=== PATIENT | female | born 1960 | race Caucasian/White ===

== ENCOUNTER 2016-08-09 19:34 | Emergency (ER) | payer OTHER ==
--- NOTE | 2016-08-09 21:14 | DIAGNOSTIC IMAGING REPORT ---
PROCEDURE: CT HEAD WITHOUT CONTRAST INDICATION: Stroke. Visual disturbance. Headache. TECHNIQUE: Noncontrast axial images with sagittal and coronal reformations. COMPARISON: None. FINDINGS: Brain and ventricles are normal. No evidence of an acute process or hemorrhage. Sinuses and mastoids are normal. IMPRESSION: 1. Negative head CT. 2. Findings discussed with Dr. Kamilah Russ at [address] scans at this facility use dose modulation, iterative reconstruction, and/or weight-based dosing when appropriate to reduce radiation dose to as low as reasonably achievable.
--- NOTE | 2016-08-09 21:15 | ED NURSING NOTES ---
Clinical Report - Nurses [facility] [address] [place] [address] 08/09/2016 19:36 [id number] Triage time 19:38 Aug 09 2016. Acuity: LEVEL 2. Chief Complaint: (partial loss of vision). SEPSIS SCREEN: Sepsis Screen. Negative (no infection suspected/documented). LASHELL COMA SCORE: Lashell Coma Scale: 15- eyes open spontaneously (4); best verbal response- oriented x 4 (5); best motor response- obeys commands (6). NIH STROKE SCALE: NIH Stroke Scale: score 1. Level of Consciousness: alert (0). LOC Questions: both (0). LOC Commands: both (0). Best gaze: normal (0). Visual field loss: partial hemianopsia (1). Facial palsy: normal (0). Motor arm: no drift right arm (0). Motor leg: no drift right leg (0). Limb ataxia: none (0). Sensory loss: none (0). Aphasia: none (0). Dysarthria: normal (0). Extinction and inattention: none (0). --19:51 Yola Ahuja R.N. 19:46 08/09/16. BP: 146/90. HR: 95. RR: 18. O2 saturation: 97%. Temp: 98.1 F. Pain level now 5/10. --19:51 Yola Ahuja R.N. 19:51 08/09/16. --19:51 Yola Ahuja R.N. Weight: 68 kg. Height/Length: 61 inches. BMI: 28.3. --19:38 Yola Ahuja R.N. Medications Lisinopril Oral. --19:47 Yola Ahuja R.N. Capsule gell pill for thyroid. --19:50 Yola Ahuja R.N. Medication/allergy information source: the patient. --19:51 Yola Ahuja R.N. Allergies Morphine and Related. --19:47 Yola Ahuja R.N. History Arrived by private vehicle. Historian: patient. Accompanied by family. Patient was last known well (1899). Treatment EXPLORATION ENGINEER: None. PAST MEDICAL HX: The patient has had a hysterectomy. SOCIAL HX: Smoker- current status unknown (quit 20 years ago). No alcohol use or drug use. No infectious disease exposure. ABUSE ASSESSMENT: No report of abuse. SELF HARM ASSESSMENT: A self harm assessment was performed. The patient answered "no" to the question "Have you recently felt down, depressed, or hopeless?", "Have you noticed less interest or pleasure in doing things?", "Do you have thoughts of harming or killing yourself?", "Are you here because you tried to hurt yourself?", "Have you ever tried to hurt yourself before today?", "Have you recently had thoughts about harming or killing others?" and "Do you have any dangerous items in your possession?". NUTRITIONAL RISK ASSESSMENT: The nutritional risk assessment revealed no deficiencies. FUNCTIONAL ASSESSMENT: Functional assessment: no impairments noted. LEARNING NEEDS ASSESSMENT: The learning needs assessment revealed no barriers. --19:51 Yola Ahuja R.N. The patient has had a headache. No alteration in mental status, recent fall, impaired speech or trouble walking or swallowing. No dizziness, weakness or numbness. --19:51 Yola Ahuja R.N. PROBLEMS: Hypothyroidism. Hypertension. --19:47 Yola Ahuja R.N. ADDITIONAL SURGERIES: Cholecystectomy. Hysterectomy. --19:47 Yola Ahuja R.N. Interventions ID and allergy band on patient. STROKE protocol initiated. --19:51 Yola Ahuja R.N. PHYSICAL ASSESSMENT 19:53 08/09/16. Ambulatory to room. GENERAL / NEURO / PSYCH: Awake. Alert. Appears anxious. Speech normal. No motor deficit. No sensory deficit. HEENT: Pupils equal, round and reactive to light. EOM intact. Bilateral visual field deficit (hazy cloud with "prisms" in both right peripheral walker). RESPIRATORY: Breath sounds within normal limits. Respirations not labored. CVS: Normal sinus rhythm noted. Capillary refill less than 2 seconds. SKIN: Skin is intact, warm and dry. --19:53 Yola Ahuja R.N. NURSING PROGRESS NOTES 19:38 08/09/16. Patient transported to CT by stretcher with tech. --19:38 Yola Ahuja R.N. 19:50 08/09/16. The initial plan of care for this patient includes an assessment with efforts to address the presence of pain; impairment of the neurological system. This plan of care was discussed with the patient. Patient gowned. Reassurance given to the patient and patient's family. Patient returned from CT by stretcher. (19:47 Aug 09 2016). Patient identifiers checked. Call light placed in reach. Side rails up x 2. Bed placed in lowest position. Brakes of bed on. --19:52 Yola Ahuja R.N. 20:00 08/09/2016 Site #1 started via IV in the left hand with an 20g angiocath, with aseptic technique and good blood return; one attempt. Blood drawn: rainbow set. Labeled in the presence of the patient and sent to the lab. Saline lock flushed with 10 mL saline. --20:02 Yola Ahuja R.N. 20:03 08/09/16. BP: 147/82. HR: 97. RR: 18. O2 saturation: 95%. Pain level now 2/10. --20:03 Yola Ahuja R.N. 20:03 08/09/16. Cardiac rhythm: normal sinus rhythm. alarm security or surveillance monitor and pulse oximeter placed on patient; alarm security or surveillance monitor- Lead II; monitor alarms on. --20:03 Yola Ahuja R.N. 20:15 08/09/2016 Started bag #1 1000 mL IV Fluids IV NS (Saline); at 1000 mL/hr over 1 hour(s) via site #1. Allergies verified and confirmed 5 rights. IV patency established. IV site checked: no pain, redness, or swelling. IV flushed thoroughly pre- and post-medication administration. --20:19 Yola Ahuja R.N. 20:25 08/09/2016 Aspirin PO Tablets 325 mg given. Allergies verified and confirmed 5 rights. --20:30 Yola Ahuja R.N. 20:25 08/09/2016 Toradol IVP 30 mg given over 1 minute(s) via site #1. Allergies verified and confirmed 5 rights. IV patency established. IV site checked: no pain, redness, or swelling. IV flushed thoroughly pre- and post-medication administration. IVP given by RN. --20:31 Yola Ahuja R.N. 20:28 08/09/2016 Benadryl (DiphenhydrAMINE HCl) IVP 12.5 mg given over 1 minute(s) via site #1. Allergies verified, confirmed 5 rights and sedative warning given to the patient and patient's family. IV patency established. IV site checked: no pain, redness, or swelling. IV flushed thoroughly pre- and post-medication administration. IVP given by RN. --20:30 Yola Ahuja R.N. 20:29 08/09/2016 PHENERGAN (Promethazine HCl) IVP 25 mg given over 5 minute(s) via site #1. Allergies verified and confirmed 5 rights. IV patency established. IV site checked: no pain, redness, or swelling. IV flushed thoroughly pre- and post-medication administration. IVP given by RN. --20:30 Yola Ahuja R.N. 20:33 08/09/16. Reassessment after medication administered. HEENT: The patient reports visual field deficit (resolving). --20:33 Yola Ahuja R.N. EKG time: (1953 PM). EKG was ordered, performed by a tech and shown to the ED physician. --20:54 Morenita Lynch 21:07 08/09/16. Reassessment after medication administered. ( Pt states feels like her arms and legs are twitching. I explained that it could be a side effect of the medications that she has been given and that if the symptoms get worse to inform staff.). --21:07 Yola Ahuja R.N. 21:15 08/09/2016 Benadryl (DiphenhydrAMINE HCl) IVP 12.5 mg given over 1 minute(s) via site #1. Allergies verified, confirmed 5 rights and sedative warning given to the patient. IV patency established. IV site checked: no pain, redness, or swelling. IV flushed thoroughly pre- and post-medication administration. IVP given by RN. --21:20 Yola Ahuja R.N. 21:15 08/09/16. ( Dr Russ at bedside reviewing findings with patient and family. Additional benadryl given for agitation following benadryl.). --21:20 Yola Ahuja R.N. DISPOSITION / DISCHARGE 21:20 08/09/2016 Site #1 removed upon discharge. Catheter intact. Pressure dressing applied. --21:21 Yola Ahuja R.N. 21:08/09/16. Cardiac rhythm: normal sinus rhythm. The goals identified in the patient's plan of care were met. --21:21 Yola Ahuja R.N. 21:08/09/16. BP: 141/77. HR: 90. RR: 24. O2 saturation: 97%. Temp: 98.5 F. Pain level now 0/10. --21:21 Yola Ahuja R.N. 21:08/09/16. Condition at departure: improved. No learning barriers present. Discharge instructions provided and reviewed with the patient and spouse. Reviewed referral to a primary care physician for followup. Summary of care provided to patient. Patient and spouse verbalized understanding. Written instructions provided in Iraqi. The patient was discharged home and accompanied by spouse. She left the Emergency Department ambulatory and via private vehicle. Spouse driving. --21:22 Yola Ahuja R.N. Departure time: 21:Aug 09 2016. --21:23 Yola Ahuja R.N. Locked/Released at 08/09/2016 21:24 by Yola Ahuja R.N.
--- NOTE | 2016-08-09 21:15 | ED CLINICAL REPORT ---
Clinical Report - Physicians/Mid Levels [facility] [address] [place] [address] 08/09/2016 19:36 Patient: ARIANA ALDRIDGE Time Seen: 19:39. Arrived- By private vehicle. Historian- patient. HISTORY OF PRESENT ILLNESS Chief Complaint: VISUAL DISTURBANCE. This started about 40 minutes ago and is still present but is improving. No weakness, numbness, tingling or impaired speech or swallowing. No recent fall. She has had visual disturbance of the left eye (patient states that she has a moving area in her vision that appears as though she is looking through a kaleidoscope. Patient states that she can see around the area). No difficulty walking. At its maximum deficit described as moderate. When seen in the E.D.,deficit described as moderate. No dizziness, altered mental status, seizure or blackouts. Usually is alert and oriented X3 and has normal mobility. Similar symptoms previously: None. ( Patient states she has a history of headaches but has never had visual changes with them. Patient states she has had a headache all day today on the left side which is the same side on which she has noticed the visual changes. Patient states she did have some pain in her jehovah's witness and behind her left eye as well as in her left forehead. She has no history of glaucoma, migraines or CVA. She states that there is a positive family history for CVA and VA in her grandmother. However her grandmother was in her upper 80s when she suffered CVA and VA.). Recent medical care: Not recently seen/assessed. REVIEW OF SYSTEMS No fever, head injury, chest pain, difficulty breathing or cough. No sputum production, sore throat, abdominal pain, nausea or diarrhea. No black stools, difficulty with urination, skin rash, enlarged lymph nodes or joint pain. No vomiting, bloody stools or back pain. The patient has had a headache. All systems otherwise negative, except as recorded above. PAST HISTORY Problems: Hypothyroidism. Hypertension. Additional Surgeries: Cholecystectomy. Hysterectomy. Medications: Capsule gell pill for thyroid. Lisinopril Oral. Allergies: Morphine and Related. SOCIAL HISTORY Smoker- current status unknown. No alcohol use or drug use. ADDITIONAL NOTES The nursing notes have been reviewed. PHYSICAL EXAM Vital Signs: 08/09/2016 19:46 BP: 146/90. HR: 95. RR: 18. O2 saturation: 97%. Temp: 98.1 F. Have been reviewed. Appearance: Alert. No acute distress. Head: Head atraumatic. Eyes: Pupils equal, round and reactive to light. ENT: Normal ENT inspection. Airway intact. (Patient has a normal fundoscopic exam. She has no temporal artery tenderness on the left. Intraocular pressure measurements average 13 and 16 on sets of 10 measurements each.). Neck: Normal inspection. CVS: Normal heart rate and rhythm. Heart sounds normal. Pulses normal. Respiratory: No respiratory distress. Breath sounds normal. Abdomen: Soft and nontender. Back: Normal inspection. No CVA tenderness. Skin: Skin warm and dry. Normal skin color. No rash. Normal skin turgor. Extremities: Extremities exhibit normal ROM. No lower extremity edema. Neuro: Alert. Oriented X 3. Mood/affect normal. Speech normal. Cranial nerves normal (as tested). No cerebellar findings. No motor deficit. No sensory deficit. LABS, X-RAYS, AND EKG EKG: EKG time: (2040). Normal sinus rhythm. Rate: 97. Left atrial enlargement. Normal PASQUALE. Decreased QRS voltage. Normal axis. Normal QT and QTc. Non-specific ST segment / T wave abnormalities. Prior EKG unavailable. The study has been interpreted contemporaneously by me. The study has been independently viewed by me. The EKG appears to be a good tracing. I agree with and confirm the computer reading of the EKG. Rhythm Strip #1: Time: (1941). Rate= 94. Normal sinus rhythm. Regular rhythm. Narrow QRS complexes. No ectopy. Conduction normal. Normal ST segments and T waves. The study was interpreted by me. CT Head: Normal study. No acute changes. No bony abnormalities, no hemorrhage, no intracranial mass, no midline shift and no hydrocephalus. No atrophy. Head CT performed without contrast. The study was independently viewed by me, interpreted by the radiologist and contemporaneously by me and discussed with the radiologist. Prior studies were not available for comparison. Laboratory Tests: CBC w Diff: (JOAN: 08/09/2016 20:00) ( MsgRcvd 08/09/2016 20:14) Final results Test Result Flag Units (Reference) WHITE BLOOD COUNT 9.8 K/uL (4.5-11.5) RED BLOOD COUNT 4.46 M/uL (4.00-5.20) HEMOGLOBIN 13.7 gm/dL (12.0-16.0) HEMATOCRIT 40.6 % (36.0-46.0) MEAN CELL VOLUME 91 fL (80-100) MEAN CORPUSCULAR HGB 31 pg (26-34) MEAN CORPUSCULAR HGB CONC 34 g/dL (31-37) RED CELL DISTRIBUTION WIDTH 12.1 % (11.6-14.8) PLATELET COUNT 277 K/uL (150-400) NEUTROPHIL % 69.8 % (50-75) LYMPH % 21.6 L % (25-40) MONO % 6.4 % (3-14) EOSINOPHIL % 1.9 % (0-4) BASOPHIL % 0.3 % (0-2) PT with INR: (JOAN: 08/09/2016 20:00) ( [facility] 08/09/2016 20:23) Final results Test Result Flag Units (Reference) INR 0.9 (0.8-1.2) Low Intensity Therapy: INR 1.5-2.0 PT range 18.5-23.1Mod.Intensity Therapy: INR 2.0-3.0 PT range 23.1-31.5High Intensity Therapy: INR 2.5-3.5 PT range 27.4-35.5High Intensity Therapy 2: INR 3.0-4.0 PT range 31.5-39.3 CHEM 13 PANEL: (JOAN: 08/09/2016 20:00) ( [facility] 08/09/2016 20:31) Final results Test Result Flag Units (Reference) GLUCOSE 122 H mg/dL (70-110) BUN 13 mg/dL (7-18) CREATININE 0.9 mg/dL (0.6-1.3) Estimated GFR >60 mL/min Estimated GFR- >60 mL/min Note: Persistent reduction over 3 months in eGFR<60 mL/min/1.73 m2 defines CKD. Patients with eGFR values>=60 mL/min/1.73 m2 may also have CKD if evidence ofpersistent proteinuria. Additional information may be foundat www.kidney.org. SODIUM 142 mmol/L (136-145) POTASSIUM 3.6 mmol/L (3.5-5.1) CHLORIDE 105 mmol/L (98-107) CARBON DIOXIDE 27 mmol/L (21-32) CALCIUM 9.3 mg/dL (8.5-10.1) TOTAL PROTEIN 7.4 g/dL (6.4-8.2) ALBUMIN 3.9 g/dL (3.3-5.0) BILIRUBIN, TOTAL 0.2 mg/dL (0.0-1.0) ALKALINE PHOSPHATASE 103 U/L (46-116) AST (SGOT) 17 U/L (15-37) ALT (SGPT) 24 U/L (12-78) CPK 66 U/L (24-260) MAGNESIUM 1.8 mg/dL (1.8-2.4) TROPONIN I <0.05 L ng/mL (0.00-1.5) TROPONIN REFERENCE RANGE:<0.1 NEGATIVE0.1-1.5 INDETERMINANT>1.5 POSITIVE . Pulse Oximetry: 08/09/2016 19:46 O2 saturation: 97%. (FIO2 - room air). Interpretation: normal. PROGRESS AND PROCEDURES Course of Care: patient was brought to the emergency department by her and was worked up as a code stroke initially. She was immediately sent to the CT scanner and radiologist did call about 5 minutes later stating that patient's CT scan was unremarkable. I did work the patient up for other causes of her symptoms. She had no evidence of temporal arteritis or glaucoma. Patient had no other neurologic symptoms and I suspected ocular migraine. I did speak at length with the patient and her regarding the patient's symptoms and potential causes. Patient was given a liter of IV fluid as well as IV Toradol and Phenergan after which she did feel better. No emergent condition was identified. Patient and spouse counseled in person regarding the patient's stable condition, test results, diagnosis and need for follow-up. Old medical records reviewed. Disposition: Discharged. Condition: stable and improved. CLINICAL IMPRESSION Sudden, transient vision loss in the left eye. Probable acute migraine headache (with ocular phenomena). INSTRUCTIONS (Your CT scan and labs look good, as does your EKG. Your eye exam shows an intact retina with good blood flow. Your eye pressures are normal, indicating that acute angle closure glaucoma is not the cause of your headache and visual changes. No emergent cause of your symptoms has been found today. Your symptoms most likely represent an ocular migraine. If you have recurrent episodes, please follow up with your doctor to discuss further management.). Warnings: GENERAL WARNINGS: Return or contact your physician immediately if your condition worsens or changes unexpectedly, if not improving as expected, or if other problems arise. Your Current Medications: CONTINUE TAKING THE FOLLOWING MEDICATIONS: Capsule gell pill for thyroid*. Lisinopril Oral. Follow-up: Follow up with your doctor as needed. Understanding of the discharge instructions verbalized by patient and family. (Electronically signed by Kamilah Russ MD 08/09/2016 22:11) Addenda for ARIANA ALDRIDGE VisitID: [id number] Date: 08/09/2016 08/09/2016 21:24 Started bag #1 1000 mL IV Fluids IV NS (Saline); at 1000 mL/hr over 1 hour(s) via site #1. Allergies verified and confirmed 5 rights. IV patency established. IV site checked: no pain, redness, or swelling. IV flushed thoroughly pre- and post-medication administration. IV Fluids IV NS Discontinued: completed upon arrival. Total amount infused: 1000 mL. (Electronically signed by Yola Ahuja R.N. - 08/09/2016 21:24)
--- NOTE | 2016-08-09 21:15 | ED ORDER SUMMARY ---
..... Patient: ARIANA ALDRIDGE OrderSheet [facility] VisitID: [id number] [place] [address] 55y, F Registration Date/Time: 08/09/2016 ORDER SHEET Weight: 68.0 kg Allergies: Morphine and Related GENERAL ORDERS: CT Head wo Cont Urgent (19:38 08/09/2016 EInderbitzen R.N. verbal order read back to Jessica DEVRIES) (Ack 19:40 OHernandez) (19:50 MCampbell) Cancer Genetic Counselor (Continuous) (19:41 08/09/2016 Jessica DEVRIES) (Ack 19:50 SRedmond) (20:05 EInderbitzen R.N.) Cardiac Panel Stat (:41 08/09/2016 Jessica DEVIRES) (Ack 19:50 SRedmond) (20:05 EInderbitzen R.N.) PT with INR Urgent (19:08/09/2016 Jsesica DEVRIES) (Ack 19:50 SRedmond) (20:05 EInderbitzen R.N.) Pulse oximeter (19:41 08/09/2016 Jessica DEVRIES) (Ack 19:50 SRedmond) (20:05 EInderbitzen R.N.) EKG - ER Stat (19:41 08/09/2016 Jessica DEVRIES) (Ack 19:50 SRedmond) (19:56 JRosenzweig) Oxygen (2 L/min) (NC) (19:08/09/2016 Jessica DEVRIES) (Ack 19:50 SRedmond) (20:05 EInderbitzen R.N.) MEDICATION ORDERS: Phenergan IV 25 mg (HIGH ALERT MEDICATION, NOW) (20:10 08/09/2016 Jessica DEVRIES) (Ack 20:20 EInderbitzen R.N.) (20:30 EInderbitzen R.N.) Aspirin PO 325 mg (Do not crush or chew, NOW) (20:11 08/09/2016 Jessica DEVRIES) (Ack 20:20 EInderbitzen R.N.) (20:30 EInderbitzen R.N.) IV FLUIDS: IV NS : initial bolus 1000 mL (1000 mL/hr), then none - (NOW) (19:41 08/09/2016 Jessica DEVRIES) (Ack 20:05 EInderbitzen R.N.) (20:19 EInderbitzen R.N.) IV NS : initial bolus 1000 mL (1000 mL/hr), then none - (NOW) (20:10 08/09/2016 Jessica DEVRIES) (Cancelled: Duplicate Order20:11 Jessica DEVRIES) Toradol IV 30 mg (NOW) (20:10 08/09/2016 Jessica DEVRIES) (Ack 20:20 EInderbitzen R.N.) (20:31 EInderbitzen R.N.) Benadryl IV 12.5 mg (NOW) (20:10 08/09/2016 Jessica DEVRIES) (Ack 20:20 EInderbitzen R.N.) (20:30 EInderbitzen R.N.) Benadryl IV 12.5 mg (NOW) (21:19 08/09/2016 EInderbitzen R.N. verbal order read back to Jessica DEVRIES) (21:20 EInderbitzen R.N.) ORDER SHEET NOTES: [Electronically signed by Yola Ahuja R.N. (21:24 08/09/2016)] [Electronically signed by Kamilah Russ MD (22:11 08/09/2016)] [Electronically locked/signed by Yola Ahuja R.N. (21:24 08/09/2016)]
--- NOTE | 2016-08-09 21:15 | ED ORDER SUMMARY ---
..... Patient: ARIANA ALDRIDGE OrderSheet [facility] VisitID: [id number] [place] [address] 55y, F Registration Date/Time: 08/09/2016 ORDER SHEET Weight: 68.0 kg Allergies: Morphine and Related GENERAL ORDERS: CT Head wo Cont Urgent (19:38 08/09/2016 EInderbitzen R.N. verbal order read back to Jessica DEVRIES) (Ack 19:40 OHernandez) (19:50 MCampbell) Elevator Tender (Continuous) (19:41 08/09/2016 Jessica DEVRIES) (Ack 19:50 SRedmond) (20:05 EInderbitzen R.N.) Cardiac Panel Stat (:41 08/09/2016 Jessica DEVRIES) (Ack 19:50 SRedmond) (20:05 EInderbitzen R.N.) PT with INR Urgent (19:08/09/2016 Jessica DEVRIES) (Ack 19:50 SRedmond) (20:05 EInderbitzen R.N.) Pulse oximeter (19:41 08/09/2016 Jessica DEVRIES) (Ack 19:50 SRedmond) (20:05 EInderbitzen R.N.) EKG - ER Stat (19:41 08/09/2016 Jessica DEVRIES) (Ack 19:50 SRedmond) (19:56 JRosenzweig) Oxygen (2 L/min) (NC) (19:08/09/2016 Jessica DEVRIES) (Ack 19:50 SRedmond) (20:05 EInderbitzen R.N.) MEDICATION ORDERS: Phenergan IV 25 mg (HIGH ALERT MEDICATION, NOW) (20:10 08/09/2016 Jessica DEVRIES) (Ack 20:20 EInderbitzen R.N.) (20:30 EInderbitzen R.N.) Aspirin PO 325 mg (Do not crush or chew, NOW) (20:11 08/09/2016 Jessica DEVRIES) (Ack 20:20 EInderbitzen R.N.) (20:30 EInderbitzen R.N.) IV FLUIDS: IV NS : initial bolus 1000 mL (1000 mL/hr), then none - (NOW) (19:41 08/09/2016 Jessica DEVRIES) (Ack 20:05 EInderbitzen R.N.) (20:19 EInderbitzen R.N.) IV NS : initial bolus 1000 mL (1000 mL/hr), then none - (NOW) (20:10 08/09/2016 Jessica DEVRIES) (Cancelled: Duplicate Order20:11 Jessica DEVRIES) Toradol IV 30 mg (NOW) (20:10 08/09/2016 Jessica DEVRIES) (Ack 20:20 EInderbitzen R.N.) (20:31 EInderbitzen R.N.) Benadryl IV 12.5 mg (NOW) (20:10 08/09/2016 Jessica DEVRIES) (Ack 20:20 EInderbitzen R.N.) (20:30 EInderbitzen R.N.) Benadryl IV 12.5 mg (NOW) (21:19 08/09/2016 EInderbitzen R.N. verbal order read back to Jessica DEVRIES) (21:20 EInderbitzen R.N.) ORDER SHEET NOTES: [Electronically signed by Yola Ahuja R.N. (21:24 08/09/2016)] [Electronically signed by Kamilah Russ MD (22:11 08/09/2016)] [Electronically locked/signed by Yola Ahuja R.N. (21:24 08/09/2016)]
--- NOTE | 2016-08-09 22:11 | ED MAR SUMMARY ---
..... Medication Administration Record [facility] [address] [place] [address] Patient: ARIANA ALDRIDGE Visit ID: [id number] 55y, F Weight: 68.0 kg Height/Length: 61 in BMI: 28.3 ALLERGIES: Morphine and Related Start 20:08/09/2016 Yola Ahuja R.N., Stop 21:08/09/2016 Yola Ahuja R.N. Medication Administered: IV NS (SALINE), Dose: IV Fluids over 1 hour(s), Rate: 1000 mL/hr, Dispensed: 1000 mL bag, Site: #1 left hand. Medication Ordered: IV NS : initial bolus 1000 mL (1000 mL/hr), then none - (NOW). Given 20:08/09/2016 Yola Ahuja R.N. Medication Administered: TORADOL [IVP], Dose: 30 mg IVP over 1 minute(s), Site: #1 left hand. Medication Ordered: Toradol IV 30 mg (NOW). Given :08/09/2016 Yola Ahuja R.N. Medication Administered: ASPIRIN [PO], Dose: 325 mg Tablets PO. Medication Ordered: Aspirin PO 325 mg (Do not crush or chew, NOW). Given :08/09/2016 Yola Ahuja R.N. Medication Administered: BENADRYL [IVP] (DIPHENHYDRAMINE HCL), Dose: 12.5 mg IVP over 1 minute(s), Site: #1 left hand. Medication Ordered: Benadryl IV 12.5 mg (NOW). Given :08/09/2016 Yola Ahuja R.N. Medication Administered: PHENERGAN [IVP] (PROMETHAZINE HCL), Dose: 25 mg IVP over 5 minute(s), Site: #1 left hand. Medication Ordered: Phenergan IV 25 mg (HIGH ALERT MEDICATION, NOW). Given :08/09/2016 Yola Ahuja R.N. Medication Administered: BENADRYL [IVP] (DIPHENHYDRAMINE HCL), Dose: 12.5 mg IVP over 1 minute(s), Site: #1 left hand. Medication Ordered: Benadryl IV 12.5 mg (NOW).
--- NOTE | 2016-08-09 22:11 | ED DISCHARGE INSTRUCTIONS ---
Patient: ARIANA ALDRIDGE General Instructions [facility] VisitID: [id number] [place] [address] 55y, F Registration Date/Time: 08/09/2016 Sudden, transient vision loss in the left eye. Probable acute migraine headache (with ocular phenomena). INSTRUCTIONS (Your CT scan and labs look good, as does your EKG. Your eye exam shows an intact retina with good blood flow. Your eye pressures are normal, indicating that acute angle closure glaucoma is not the cause of your headache and visual changes. No emergent cause of your symptoms has been found today. Your symptoms most likely represent an ocular migraine. If you have recurrent episodes, please follow up with your doctor to discuss further management.). Warnings: GENERAL WARNINGS: Return or contact your physician immediately if your condition worsens or changes unexpectedly, if not improving as expected, or if other problems arise. Your Current Medications: CONTINUE TAKING THE FOLLOWING MEDICATIONS: Capsule gell pill for thyroid*. Lisinopril Oral. Follow-up: Follow up with your doctor as needed. Understanding of the discharge instructions verbalized by patient and family. ADDITIONAL INFORMATION Migraine Headache Migraine headaches are related to changes in blood flow to the brain. This causes throbbing or constant pain on one or both sides of the head. The pain may last from a few hours to several days. There is usually nausea, vomiting, sensitivity to light and sound, and blurred vision. A migraine attack may be triggered by emotional stress, hormone changes during the menstrual cycle, oral contraceptives, alcohol use, certain foods containing tyramine, eye strain, weather changes, missing meals, or too little or too much sleep. Home Care For This Headache: 1) If you were given pain medicine for this headache, do not drive yourself home . Arrange for a ride, instead. When you get home, try to sleep. You should feel much better when you wake up. 2) Migraine headaches may improve with an ice pack on the forehead or at the base of the skull. Heat to the back of your neck may relieve any neck spasm. 3) Drink only clear liquids or eat a very light diet to avoid nausea/vomiting until symptoms improve. Preventing Future Headaches: 1) Pay attention to those factors that seem to trigger your headache. Try to avoid them when you can. If you have frequent headaches, it is useful to keep a diary of what you were doing, feeling or eating in the hours before each attack. Show this to your doctor to help find the cause of your headaches. a) If you feel that stress is a factor in your headaches, look at the sources of stress in your life. Find ways to release the build-up of those stresses by using regular exercise, relaxation methods (yoga, meditation), bio-feedback or simply taking time-out for yourself. For more information about this, consult your doctor or go to a local bookstore and review books and tapes on this subject. b) Tyramine is a substance present in the following foods : chocolate, yogurt, all cheeses except cottage cheese and cream cheese. smoked or pickled fish and meat (including clarke, caviar, bologna, pepperoni, salami), liver, avocados, bananas, figs, raisins, and red wine. Be aware that these foods may trigger a migraine in some persons. Try taking these foods out of your diet for 1-2 months to see if this reduces headache frequency. Treating Future Attacks: 1) At the first sign of a headache, take time out if possible. Find a quiet, dark, comfortable place to sit or lie down. Let yourself relax or sleep. 2) An ice pack on the forehead or area of greatest pain may help. If you are having muscle spasm and tightness of the neck, a heating pad and massage to this area may be helpful. 3) If you have been prescribed a medicine to stop a migraine headache, use this at the very first warning sign of the headache (aura or initial pain) for best results. Follow Up with your doctor if the headache is not better within the next 24 hours. If you have frequent headaches you should discuss a treatment plan with your primary care doctor. Ask if you can have medicine to take at home the next time you get a bad headache. Poorly controlled chronic headaches may require a referral to a neurologist (headache specialist). Get Prompt Medical Attention if any of the following occur: Your head pain gets worse, or does not improve within 24 hours Repeated vomiting (cant keep liquids down) Sinus or ear or throat pain (not already reported) Fever of 100.4 F (38 C) or higher, or as directed by your healthcare provider Stiff neck Extreme drowsiness, confusion or fainting Dizziness, vertigo (dizziness with spinning sensation) Weakness of an arm or leg or one side of the face Difficulty with speech or vision You have been given the following additional information: Headache, Migraine (Classical) (Electronically signed by Kamilah Russ MD 08/09/2016 22:11)
--- NOTE | 2016-08-09 22:11 | ED MAR SUMMARY ---
..... Medication Administration Record [facility] [address] [place] [address] Patient: ARIANA ALDRIDGE Visit ID: [id number] 55y, F Weight: 68.0 kg Height/Length: 61 in BMI: 28.3 ALLERGIES: Morphine and Related Start 20:08/09/2016 Yola Ahuja R.N., Stop 21:08/09/2016 Yola Ahuja R.N. Medication Administered: IV NS (SALINE), Dose: IV Fluids over 1 hour(s), Rate: 1000 mL/hr, Dispensed: 1000 mL bag, Site: #1 left hand. Medication Ordered: IV NS : initial bolus 1000 mL (1000 mL/hr), then none - (NOW). Given 20:08/09/2016 Yola Ahuja R.N. Medication Administered: TORADOL [IVP], Dose: 30 mg IVP over 1 minute(s), Site: #1 left hand. Medication Ordered: Toradol IV 30 mg (NOW). Given :08/09/2016 Yola Ahuja R.N. Medication Administered: ASPIRIN [PO], Dose: 325 mg Tablets PO. Medication Ordered: Aspirin PO 325 mg (Do not crush or chew, NOW). Given :08/09/2016 Yola Ahuja R.N. Medication Administered: BENADRYL [IVP] (DIPHENHYDRAMINE HCL), Dose: 12.5 mg IVP over 1 minute(s), Site: #1 left hand. Medication Ordered: Benadryl IV 12.5 mg (NOW). Given :08/09/2016 Yola Ahuja R.N. Medication Administered: PHENERGAN [IVP] (PROMETHAZINE HCL), Dose: 25 mg IVP over 5 minute(s), Site: #1 left hand. Medication Ordered: Phenergan IV 25 mg (HIGH ALERT MEDICATION, NOW). Given :08/09/2016 Yola Ahuja R.N. Medication Administered: BENADRYL [IVP] (DIPHENHYDRAMINE HCL), Dose: 12.5 mg IVP over 1 minute(s), Site: #1 left hand. Medication Ordered: Benadryl IV 12.5 mg (NOW).
--- NOTE | 2016-08-09 22:11 | ED MED RECONCILIATION SUMMARY ---
Patient: ARIANA ALDRIDGE Medication Reconciliation Report [facility] VisitID: [id number] [address] [place] [address] 55y, F Registration Date/Time: 08/09/2016 Weight: 68.0 kg Height/Length: 61 in. BMI: 28.3 ALLERGIES: Morphine and Related The patient's Home Medications are listed below: CONTINUE TAKING THE FOLLOWING MEDICATIONS: Capsule gell pill for thyroid Lisinopril Oral The source(s) of the original Home Medication information: patient The following Medications were given to the patient in the Emergency Department: IV NS IV Fluids bolus 0, then 1000 mL/hr, administered: 08/09/2016 8:15:00 PM Aspirin [PO] PO 325 mg, administered: 08/09/2016 8:25:00 PM Benadryl [IVP] IVP 12.5 mg, administered: 08/09/2016 8:28:00 PM PHENERGAN [IVP] IVP 25 mg, administered: 08/09/2016 8:29:00 PM Toradol [IVP] IVP 30 mg, administered: 08/09/2016 8:25:00 PM Benadryl [IVP] IVP 12.5 mg, administered: 08/09/2016 9:15:00 PM The following Medications were prescribed to the patient: None.
--- NOTE | 2016-08-09 22:11 | ED MED RECONCILIATION SUMMARY ---
Patient: ARIANA ALDRIDGE Medication Reconciliation Report [facility] VisitID: [id number] [address] [place] [address] 55y, F Registration Date/Time: 08/09/2016 Weight: 68.0 kg Height/Length: 61 in. BMI: 28.3 ALLERGIES: Morphine and Related The patient's Home Medications are listed below: CONTINUE TAKING THE FOLLOWING MEDICATIONS: Capsule gell pill for thyroid Lisinopril Oral The source(s) of the original Home Medication information: patient The following Medications were given to the patient in the Emergency Department: IV NS IV Fluids bolus 0, then 1000 mL/hr, administered: 08/09/2016 8:15:00 PM Aspirin [PO] PO 325 mg, administered: 08/09/2016 8:25:00 PM Benadryl [IVP] IVP 12.5 mg, administered: 08/09/2016 8:28:00 PM PHENERGAN [IVP] IVP 25 mg, administered: 08/09/2016 8:29:00 PM Toradol [IVP] IVP 30 mg, administered: 08/09/2016 8:25:00 PM Benadryl [IVP] IVP 12.5 mg, administered: 08/09/2016 9:15:00 PM The following Medications were prescribed to the patient: None.
== END 2016-08-09 21:23 | disposition home or self-care (01) ==
LOC: ED SRH 19:34
DX: H53.122 Transient visual loss, left eye (principal); H53.132 Sudden visual loss, left eye; I10 Essential (primary) hypertension; E03.9 Hypothyroidism, unspecified; Z79.899 Other long term (current) drug therapy; Z88.5 Allergy status to narcotic agent
CPT/HCPCS: 90100; 90616; 92610; 92720; 94060; 95059

== ENCOUNTER 2016-09-25 10:26 | Outpatient (CLI) | payer OTHER ==
--- NOTE | 2016-09-25 13:01 | DIAGNOSTIC IMAGING REPORT ---
PROCEDURE: MR BRAIN WITHOUT CONTRAST INDICATION: HEADACHES; DECREASED VISION TECHNIQUE: Multiplanar multisequence MRI imaging of the brain without contrast. COMPARISON: Head CT dated 08/09/2016 FINDINGS: The midline structures are normally formed. The ventricular system is normal in size. Basal cisterns are patent. Flow voids in the major intracranial vessels are normal. A few scattered areas of increased signal are seen in the periventricular white matter consistent with small-vessel ischemic disease. No restricted diffusion to suggest acute ischemia. No evidence of acute or chronic intraparenchymal or extra-axial hemorrhage. No mass, mass effect, or midline shift. Normal signal in the visible bones. The sinuses are normally aerated. Visible extracranial soft tissues including the orbits are normal. IMPRESSION: 1. Mild periventricular small-vessel ischemic disease.
== END 2016-09-25 23:00 ==
LOC: MRI SRH 10:26
DX: R51 Headache (principal); H53.9 Unspecified visual disturbance

== ENCOUNTER 2016-10-02 10:03 | Outpatient (CLI) | payer OTHER ==
--- NOTE | 2016-10-02 10:48 | DIAGNOSTIC IMAGING REPORT ---
PROCEDURE: US BILATERAL CAROTID DOPPLER INDICATION: AMAUROSIS FUGAX ONF THE LEFT TECHNIQUE: Color Doppler duplex imaging of the carotid and vertebral vessels. COMPARISON: None. FINDINGS: trace of plaque. Right carotid system: No significant stenosis visualized. The waveforms are normal. Left carotid system: No significant stenosis visualized. The waveforms are normal. Vertebral System: Antegrade vertebral artery flow bilaterally. Right common carotid artery peak systolic velocity 79.9 cm/second. Right internal carotid artery peak systolic velocity 78 cm/second. Right external carotid artery peak systolic velocity 89 cm/second. Right rbizsmsl-wh-clxzhv carotid artery ratio 1.1 Right vertebral artery peak systolic velocity 26.5 cm/second. Left common carotid artery peak systolic velocity 84 cm/second. Left internal carotid artery peak systolic velocity 100.3 cm/second. Left external carotid artery peak systolic velocity 75.9 cm/second. Left itoqolhg-jc-cyjoff carotid artery ratio 1.4 Left vertebral artery peak systolic velocity 33.2 cm/second. IMPRESSION: 1. No hemodynamically significant stenosis in either carotid system. 2. Antegrade vertebral artery flow bilaterally. Velocity criteria are extrapolated from diameter data as defined by the Society of Radiologists in Ultrasound Consensus Conference, Radiology 2003; 229; 340-346.
--- NOTE | 2016-10-02 10:48 | DIAGNOSTIC IMAGING REPORT ---
PROCEDURE: US BILATERAL CAROTID DOPPLER INDICATION: AMAUROSIS FUGAX ONF THE LEFT TECHNIQUE: Color Doppler duplex imaging of the carotid and vertebral vessels. COMPARISON: None. FINDINGS: trace of plaque. Right carotid system: No significant stenosis visualized. The waveforms are normal. Left carotid system: No significant stenosis visualized. The waveforms are normal. Vertebral System: Antegrade vertebral artery flow bilaterally. Right common carotid artery peak systolic velocity 79.9 cm/second. Right internal carotid artery peak systolic velocity 78 cm/second. Right external carotid artery peak systolic velocity 89 cm/second. Right pjvpeivb-hl-vimgku carotid artery ratio 1.1 Right vertebral artery peak systolic velocity 26.5 cm/second. Left common carotid artery peak systolic velocity 84 cm/second. Left internal carotid artery peak systolic velocity 100.3 cm/second. Left external carotid artery peak systolic velocity 75.9 cm/second. Left dwhjullq-dr-nddfee carotid artery ratio 1.4 Left vertebral artery peak systolic velocity 33.2 cm/second. IMPRESSION: 1. No hemodynamically significant stenosis in either carotid system. 2. Antegrade vertebral artery flow bilaterally. Velocity criteria are extrapolated from diameter data as defined by the Society of Radiologists in Ultrasound Consensus Conference, Radiology 2003; 229; 340-346.
== END 2016-10-02 23:00 ==
LOC: US SRH 10:03
DX: G45.3 Amaurosis fugax (principal)

== ENCOUNTER 2016-10-08 16:27 | Emergency (ER) | payer OTHER ==
--- NOTE | 2016-10-08 17:37 | DIAGNOSTIC IMAGING REPORT ---
PROCEDURE: XR CHEST 1 VIEW INDICATION: CHEST PAIN TECHNIQUE: Portable AP view 05:28 p.m. COMPARISON: None. FINDINGS: Lungs are clear. Heart and mediastinum are normal. Thorax is normal. IMPRESSION: 1. Negative chest.
--- NOTE | 2016-10-08 17:42 | DIAGNOSTIC IMAGING REPORT ---
PROCEDURE: CT HEAD WITHOUT CONTRAST INDICATION: WORSENING VISION WITH HX OF STROKE TECHNIQUE: Axial CT images were acquired through the head. Coronal and sagittal reformations were created. COMPARISON: Head CT 08/09/2016 FINDINGS: No intracranial hemorrhage or extraaxial fluid collections. Ventricles are normal in size, shape and position. There is no mass, mass effect or midline shift. The palacios-white matter differentiation is normal. There is no edema. The calvarium is intact. The paranasal sinuses and mastoid air cells are normally aerated. The extracranial soft tissues and orbits are normal. IMPRESSION: 1. No CT evidence of acute intracranial process. 2. Findings discussed with emergency department at 05:[address] scans at this facility use dose modulation, iterative reconstruction, and/or weight-based dosing when appropriate to reduce radiation dose to as low as reasonably achievable.
--- NOTE | 2016-10-08 20:36 | ED ORDER SUMMARY ---
..... Patient: ARIANA ALDRIDGE OrderSheet [facility] VisitID: [id number] [place] [address] 56y, F Registration Date/Time: 10/08/2016 ORDER SHEET Weight: 68.0 kg (stated) Allergies: Morphine and Related GENERAL ORDERS: EKG - ER Stat (16:39 10/08/2016 LNations ER Tech1 per protocol) (16:40 PWeiler ER Tech1) Chest 1V Urgent (16:51 10/08/2016 Barber Stahl) (Ack 16:54 PWeiler ER Tech1) (17:40 EHassan R.N.) Electric Milkers Installer (Continuous) (CP) (16:52 10/08/2016 Barber Stahl) (16:58 LWhalen R.N.) CT Head wo Cont Urgent (16:52 10/08/2016 Barber Stahl) (Ack 16:55 PWeiler ER Tech1) (17:40 EHassan R.N.) CBC w Diff Urgent (16:53 10/08/2016 Barber Stahl) (Ack 16:54 PWeiler ER Tech1) (17:00 EHassan R.N.) CMP Urgent (16:53 10/08/2016 Barber Stahl) (Ack 16:54 PWeiler ER Tech1) (17:00 EHassan R.N.) UA-Culture if indicated Urgent (16:53 10/08/2016 Barber Stahl) (Ack 16:54 PWeiler ER Tech1) (17:40 EHassan R.N.) PT with INR Urgent (16:53 10/08/2016 Barber Stahl) (Ack 16:54 PWeiler ER Tech1) (17:00 EHassan R.N.) D-Dimer Urgent (16:53 10/08/2016 Barber Stahl) (Ack 16:54 PWeiler ER Tech1) (17:00 EHassan R.N.) Troponin-I Urgent (16:53 10/08/2016 Barber Stahl) (Ack 16:54 PWeiler ER Tech1) (17:00 EHassan R.N.) PTT Urgent (16:53 10/08/2016 Barber Stahl) (Ack 16:54 PWeiler ER Tech1) (17:00 EHassan R.N.) Pulse oximeter (16:53 10/08/2016 Barber Stahl) (16:58 LWhalen R.N.) TSH Urgent (16:53 10/08/2016 Barber Stahl) (Ack 16:55 PWeiler ER Tech1) (17:00 EHayanna R.N.) TSH Urgent (17:55 10/08/2016 Barber Stahl) (Cancelled: Duplicate Order17:58 Barber Stahl) Troponin-I Urgent (18:40 10/08/2016 Barber Stahl) (Ack 18:43 PWeiler ER Tech1) (18:54 EHassaadrian R.N.) MEDICATION ORDERS: IV FLUIDS: IV Saline Lock (16:53 10/08/2016 Barber Stahl) (17:41 EHassaadrian R.N.) ORDER SHEET NOTES: [Electronically signed by Naheed Vega R.N. (20:46 10/08/2016)] [Electronically signed by Emil Hedrick Dr. (19:27 10/09/2016)] [Electronically locked/signed by Naheed Vega R.N. (20:46 10/08/2016)]
--- NOTE | 2016-10-08 20:36 | ED NURSING NOTES ---
Clinical Report - Nurses [facility] [address] [place] [address] 10/08/2016 16:27 Patient: ARIANA ALDRIDGE TRIAGE Triage time 1622 PM. Acuity: LEVEL 2. Chief Complaint: CHEST PAIN and DISCOMFORT. Alert. No acute distress. SEPSIS SCREEN: Sepsis Screen. Negative (no infection suspected/documented). LASHELL COMA SCORE: Lashell Coma Scale: 15- eyes open spontaneously (4); best verbal response- oriented x 4 (5); best motor response- obeys commands (6). --16:56 Naheed Vega R.N. 16:25 10/08/16. BP: 147/100 (regular adult cuff) taken on the left arm, while sitting. HR: 95. RR: 14. O2 saturation: 98%. Temp: 97 F. Pain level now: 08/12. --16:56 Naheed Vega R.N. Weight: 68 kg stated. Height/Length: 62 inches Per Patient. BMI: 27.4. --16:45 Naheed Vega R.N. Medications Lisinopril Oral. --16:49 Naheed Vega R.N. Climara Transdermal. --16:50 Naheed Vega R.N. Tirosint Oral (Capsule 88 mcg) 1 capsule. --16:51 Naheed Vega R.N. Vitamin D Oral. --16:51 Naheed Vega R.N. Allergies Morphine and Related. --16:49 Naheed Vega R.N. Medication/allergy information source: the patient. --16:56 Naheed Vega R.N. History Arrived by private vehicle. Historian: patient. Accompanied by family. Primary physician (Dr. Newsome). ( Pt states that since Friday have been having symptoms of SOB, fatigue, fast HR, dizziness, ringing of ears, chills, nauseous. tingling of both feet, and pain on his right hip radiates to knee area. Pt just got an MRI 2-3 weeks ago which was told that had TIA, since Friday has been experiencing " spot again on both eyes pulsating like when experiences SOB and dizziness". Pt called Dr. Newsome office and was told to come to ED. Pt does have a follow-up appt on Friday). This is a new problem and onset was abrupt. Symptoms are constant and still present (Friday 3 days). She has had difficulty breathing. Reports experiencing sweating episodes. Treatment GOLD LEAF ROLLER: None. Took aspirin. PAST MEDICAL HX: Immunizations: up-to-date. SOCIAL HX: Former smoker, end date 1996. Occasional alcohol use. No drug use. No infectious disease exposure. ABUSE ASSESSMENT: No report of abuse. SELF HARM ASSESSMENT: A self harm assessment was performed. The patient answered "no" to the question "Do you have thoughts of harming or killing yourself?" and "Have you recently had thoughts about harming or killing others?". FALL RISK ASSESSMENT: Fall risk assessment completed. No fall risk identified. NUTRITIONAL RISK ASSESSMENT: The nutritional risk assessment revealed no deficiencies. FUNCTIONAL ASSESSMENT: Functional assessment: no impairments noted. LEARNING NEEDS ASSESSMENT: The learning needs assessment revealed no barriers. SKIN INTEGRITY ASSESSMENT: Skin integrity risk assessment completed. No skin integrity risk identified. --16:56 Naheed Vega R.N. PROBLEMS: Sinusitis. Headache. Hypothyroidism. Hypertension. --16:51 Naheed Vega R.N. ADDITIONAL SURGERIES: Cholecystectomy. Hysterectomy. --16:51 Naheed Vega R.N. Interventions ID band on patient. --16:56 Naheed Vega R.N. PHYSICAL ASSESSMENT Ambulatory to room. GENERAL / NEURO / PSYCH: Alert. Oriented X 4. HEENT: Mucous membranes are pink. RESPIRATORY: Respirations not labored. Chest nontender. Breath sounds within normal limits. CVS: Heart sounds within normal limits. Pulses within normal limits. Capillary refill less than 2 seconds. GI / : Abdomen soft and nontender. EXTREMITIES: No lower extremity edema. SKIN: Skin is warm and dry. Normal skin turgor. --16:59 Naheed Vega R.N. NURSING PROGRESS NOTES The initial plan of care for this patient has been created This plan of care was discussed with the patient. sales order processor, pulse oximeter and NIBP monitor placed on patient; monitor alarms on. Patient ID band checked for patient name, birthdate and medical record number: patient confirmed. Blood samples drawn from the left antecubital space by nurse per protocol: rainbow set. Patient gowned. Warming measures: blanket applied. Reassurance given. Patient identifiers checked. Call light placed in reach. Side rails up x 1. Bed placed in lowest position. --17:00 Naheed Vega R.N. EKG time: (1638). EKG was ordered, performed by aurea simmons and shown to the ED physician. --17:16 Ester Hernandez ER Tech1 17:16 10/08/2016 Site #1 started via IV in the left antecubital space with an 20g angiocath; one attempt. Blood drawn: rainbow set. Labeled in the presence of the patient and sent to the lab. --17:41 Naheed Vega R.N. Cardiac rhythm: normal sinus rhythm. sales order processor, pulse oximeter and NIBP monitor placed on patient; monitor alarms on. Reassurance given. Patient returned from CT. (1744 PM). Call light placed in reach. Side rails up. --17:44 Naheed Vega R.N. 17:30 10/08/16. BP: 118/80 (regular adult cuff) taken on the right arm, via an automated monitor, while sitting. HR: 85. RR: 14. O2 saturation: 95% on room air. Pain level now: 0/10. --17:44 Naheed Vega R.N. The patient is calm and resting quietly. Overall patient status is the same- she states feels the same. GENERAL / NEURO / PSYCH: Denies anxiety. HEENT: Denies headache. RESPIRATORY: Denies difficulty breathing. CVS: Denies chest pain. GI / : Denies nausea. --17:44 Naheed Vega R.N. late entry - 18:00 PM. sales order processor, pulse oximeter and NIBP monitor placed on patient; monitor alarms on. Reassurance given. HEENT: Denies headache. RESPIRATORY: Denies difficulty breathing. CVS: Denies chest pain. GI / : Denies nausea. Call light placed in reach. Side rails up x 1. Bed placed in lowest position. --19:00 Naheed Vega R.N. 18:00 10/08/16. BP: 132/58. HR: 78. RR: 14. O2 saturation: 100%. Temp: 98.3 F (oral). Pain level now: 0/10. --19:00 Naheed Vega R.N. Cardiac rhythm: normal sinus rhythm. ( Pt states that about 1/2 hour ago experienced chest pain and right leg pain at the same time. Second troponin send as ordered. Will notify Dr. Mariano Will monitor). GENERAL / NEURO / PSYCH: Denies anxiety. HEENT: Denies headache. RESPIRATORY: Denies difficulty breathing. No respiratory distress. CVS: Denies chest pain. Normal sinus rhythm noted. SKIN: Skin is warm. Skin color within normal limits. --19:07 Naheed Vega R.N. 19:05 10/08/16. BP: 117/68 (regular adult cuff) taken on the right arm, via an automated monitor, while sitting. HR: 93. RR: 20. O2 saturation: 96% on room air. Temp: 98.1 F (oral). Pain level now: 0/10. --19:07 Naheed Vega R.N. DISPOSITION / DISCHARGE 20:45 10/08/2016 Site #1 removed upon discharge. Catheter intact. Manual pressure, pressure dressing, bandaid and bandage applied. --20:45 Naheed Vega R.N. Cardiac rhythm: normal sinus rhythm. Departure time: 2046 PM. Condition at departure: unchanged and stable. The goals identified in the patient's plan of care were met. No learning barriers present. Discharge instructions provided and reviewed with the patient. Reviewed warnings (s/s of stroke or CP- follow up with cardiology). Reviewed medication(s) side effects, precautions, dosing and course information. Prescription(s) given to the patient. Patient verbalized understanding. Written instructions provided in Persian. No treatment instructions or referrals given to the patient. The patient was discharged by the physician. She was discharged home and accompanied by spouse. She left the Emergency Department ambulatory and via private vehicle. Spouse driving. FALL RISK ASSESSMENT: Fall risk assessment completed. No fall risk identified. --20:46 Naheed Vega R.N. 20:30 10/08/16. BP: 118/79 taken on the left arm, via an automated monitor, while sitting. HR: 93. RR: 15. O2 saturation: 97% on room air. Temp: 98.1 F (oral). Pain level now: 0/10. --20:46 Naheed Vega R.N. Locked/Released at 10/08/2016 20:46 by Naheed Vega R.N.
--- NOTE | 2016-10-08 20:36 | ED CLINICAL REPORT ---
Clinical Report - Physicians/Mid Levels [facility] [address] [place] [address] 10/08/2016 16:27 Patient: ARIANA ALDRIDGE Time Seen: 1644. Arrived- By private vehicle. Historian- patient. HISTORY OF PRESENT ILLNESS Chief Complaint: CHEST PAIN. At its maximum, severity described as moderate. When seen in the E.D., severity described as moderate. Modifying factors. Not worsened by anything. Not relieved by anything. It is described as tightness and it is described as located in the central chest area. No radiation. This started today and is still present. It was abrupt in onset and has been constant but is not gone now. Onset during rest. No nausea, vomiting, difficulty breathing or diaphoresis. 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 States the spot is larger than normal.). No additional chest pain. Similar symptoms previously: None. Recent medical care: Not recently seen/assessed. REVIEW OF SYSTEMS No fever, chills, headache or skin rash. All systems otherwise negative, except as recorded above. PAST HISTORY See nurses notes. Medications: Vitamin D Oral. Tirosint Oral (Capsule 88 mcg) 1 capsule. Climara Transdermal. Lisinopril Oral. Allergies: Morphine and Related. SOCIAL HISTORY Former smoker. No alcohol use or drug use. No recent travel. Is a local resident. FAMILY HISTORY Negative. ADDITIONAL NOTES The nursing notes have been reviewed. PHYSICAL EXAM Appearance: Alert. Oriented X3. No acute distress. Eyes: Pupils equal, round and reactive to light. Eyes normal inspection. ENT: Ears normal. Nose normal. Pharynx normal. Neck: Normal inspection. Neck supple. CVS: Normal heart rate and rhythm. Heart sounds normal. Pulses normal. Respiratory: No respiratory distress. Breath sounds normal. Chest nontender. No rales, rhonchi or wheezes. Abdomen: Soft and nontender. Bowel sounds normal. Skin: Skin warm and dry. Normal skin color. No rash. Normal skin turgor. Extremities: Extremities exhibit normal ROM. No lower extremity edema. Neuro: Oriented X 3. No motor deficit. No sensory deficit. LABS, X-RAYS, AND EKG EKG: No acute process. No acute ischemia. Normal EKG. Normal sinus rhythm. Rate: 94. Normal P waves. Normal PASQUALE. Normal QRS complex. Normal QT. Non-specific T wave inversion in lead II, III and aVF. No ST elevation or depression. EKG unchanged when compared with prior EKG. (08/09/16). The study has been interpreted contemporaneously. The study has been independently viewed by me. The EKG appears to be a good tracing. Chest X-ray: (PROCEDURE: XR CHEST 1 VIEW INDICATION: CHEST PAIN TECHNIQUE: Portable AP view 05:28 p.m. COMPARISON: None. FINDINGS: Lungs are clear. Heart and mediastinum are normal. Thorax is normal. IMPRESSION: 1. Negative chest.). The X-rays were independently viewed by me and interpreted by the radiologist. The X-rays were discussed with the radiologist (via pacs). CT Head: (PROCEDURE: CT HEAD WITHOUT CONTRAST INDICATION: WORSENING VISION WITH HX OF STROKE TECHNIQUE: Axial CT images were acquired through the head. Coronal and sagittal reformations were created. COMPARISON: Head CT 08/09/2016 FINDINGS: No intracranial hemorrhage or extraaxial fluid collections. Ventricles are normal in size, shape and position. There is no mass, mass effect or midline shift. The palacios-white matter differentiation is normal. There is no edema. The calvarium is intact. The paranasal sinuses and mastoid air cells are normally aerated. The extracranial soft tissues and orbits are normal. IMPRESSION: 1. No CT evidence of acute intracranial process.). The study was independently viewed by me and interpreted by the radiologist. The study was discussed with the radiologist (via pacs). Laboratory Tests: UA-Culture if indicated: (JOAN: 10/08/2016 17:12) ( MsgRcvd 10/08/2016 17:31) Final results Test Result Flag Units (Reference) URINE COLOR STRAW URINE APPEARANCE CLEAR URINE GLUCOSE NEGATIVE (NEGATIVE) URINE BILIRUBIN NEGATIVE (NEGATIVE) URINE KETONE NEGATIVE (NEGATIVE) URINE SPECIFIC GRAVITY 1.010 (1.010-1.030) URINE PH 5.5 (5.0-8.0) URINE PROTEIN NEGATIVE (NEGATIVE) URINE UROBILINOGEN 0.2 EU/dL (0.2-1.0) URINE NITRITE NEGATIVE (NEGATIVE) URINE BLOOD TRACE-INTACT (NEGATIVE) URINE LEUK ESTERASE NEGATIVE (NEGATIVE) URINE RBC 0-1 rbc/hpf (0-1) URINE WBC NONE SEEN wbc/hpf (0-1) URINE EPITHELIAL CELLS NONE SEEN EPI/hpf (0-5) URINE BACTERIA NONE SEEN (NONE SEEN) URINE COMMENT CULT NOT INDICATED URINE CULTURES ARE SET-UP BASED ON THE FOLLOWING CRITERIA:POSITIVE NITRITEPOSITIVE LEUKOCYTE ESTERASEGREATER THAN 10 WHITE BLOOD CELLSMODERATE (2+) OR GREATER BACTERIA CBC w Diff: (JOAN: 10/08/2016 16:45) ( [facility] Final results Test Result Flag Units (Reference) WHITE BLOOD COUNT 11.2 K/uL (4.5-11.5) RED BLOOD COUNT 4.63 M/uL (4.00-5.20) HEMOGLOBIN 14.6 gm/dL (12.0-16.0) HEMATOCRIT 42.2 % (36.0-46.0) MEAN CELL VOLUME 91 fL (80-100) MEAN CORPUSCULAR HGB 31 pg (26-34) MEAN CORPUSCULAR HGB CONC 35 g/dL (31-37) RED CELL DISTRIBUTION WIDTH 12.6 % (11.6-14.8) PLATELET COUNT 291 K/uL (150-400) NEUTROPHIL % 70.2 % (50-75) LYMPH % 22.0 L % (25-40) MONO % 5.0 % (3-14) EOSINOPHIL % 2.4 % (0-4) BASOPHIL % 0.4 % (0-2) PT with INR: (JOAN: 10/08/2016 16:45) ( [facility] 10/08[facility] 17:30) Final results Test Result Flag Units (Reference) INR 0.9 (0.8-1.2) Low Intensity Therapy: INR 1.5-2.0 PT range 18.5-23.1Mod.Intensity Therapy: INR 2.0-3.0 PT range 23.1-31.5High Intensity Therapy: INR 2.5-3.5 PT range 27.4-35.5High Intensity Therapy 2: INR 3.0-4.0 PT range 31.5-39.3 APTT 30 SECONDS (24-34) D-DIMER QUANTITATIVE < 0.27 L ug/mLFEU (0.27-0.52) The primary value of this quantitative assay relates toits negative predictive value (i.e. exclusion) of pulmonaryembolism/deep vein thrombosis/DIC.Elevated levels of d-dimer may also occur with:, age, cancer, inflammation, liver disease,post-op, infection, hematoma, coronary disease, peripheralarteriopathy, bleeding disorders and thrombolytic treatment.Results should be correlated with other clinical andradiological data.Testing Methodology: Latex Immunoassay Troponin-I: (JOAN: 10/08/2016 18:50) ( [facility] 10/08/2016 20:46) Final results Test Result Flag Units (Reference) TROPONIN I <0.05 L ng/mL (0.00-1.5) TROPONIN REFERENCE RANGE:<0.1 NEGATIVE0.1-1.5 INDETERMINANT>1.5 POSITIVE TSH: (JOAN: 10/08/2016 16:45) ( [facility] 10/08/2016 19:57) Final results Test Result Flag Units (Reference) THYROID STIMULATING HORMONE 1.242 uIU/mL (0.30-3.74) CMP: (JOAN: 10/08/2016 16:45) ( [facility] 10/08/2016 17:45) Final results Test Result Flag Units (Reference) GLUCOSE 110 mg/dL (70-110) BUN 13 mg/dL (7-18) CREATININE 0.8 mg/dL (0.6-1.3) Estimated GFR >60 mL/min Estimated GFR- >60 mL/min Note: Persistent reduction over 3 months in eGFR<60 mL/min/1.73 m2 defines CKD. Patients with eGFR values>=60 mL/min/1.73 m2 may also have CKD if evidence ofpersistent proteinuria. Additional information may be foundat www.kidney.org. SODIUM 138 mmol/L (136-145) POTASSIUM 3.4 L mmol/L (3.5-5.1) CHLORIDE 101 mmol/L (98-107) CARBON DIOXIDE 27 mmol/L (21-32) CALCIUM 9.0 mg/dL (8.5-10.1) TOTAL PROTEIN 7.8 g/dL (6.4-8.2) ALBUMIN 4.0 g/dL (3.3-5.0) BILIRUBIN, TOTAL 0.2 mg/dL (0.0-1.0) ALKALINE PHOSPHATASE 106 U/L (46-116) AST (SGOT) 17 U/L (15-37) ALT (SGPT) 23 U/L (12-78) TROPONIN I <0.05 ng/mL (0.00-1.5) TROPONIN REFERENCE RANGE:<0.1 NEGATIVE0.1-1.5 INDETERMINANT>1.5 POSITIVE . PROGRESS AND PROCEDURES Course of Care: the patient is a pleasant 56-year-old female with past medical history significant for prior CVA ppain. At this time differential diagnosis includes acute myocardial infarction, pulmonary embolism, pneumonia, pneumothorax. Patient will be evaluated with chest x-ray EKG laboratory studies. Based on the patient's onset of symptoms, a delta troponin will be ordered. Patient is agreeable to the treatment and plan. The patient's workup was remarkable for the findings above. Patient noted with a T-wave inversion in the inferior leads which are noted to be on her prior EKG. No acute changes noted. Troponin on first draw was noted to be less than the detectable limit. Rest of the patient's laboratory studies are unremarkable. Symptoms while here in the emergency department if significantly improved. CT scan of the head does not show any signs of acute intracranial bleeds. Do not fill patient is having an acute stroke. Patient is likely having exacerbation of her prior CVA. The patient's second troponin was been resulted from the laboratory. We have called the laboratory multiple times to obtain the last troponin. Patient had stated the machine at shutdown. Had called back later and the troponin had not been run. At this time, the patient was updated and was very patient with the results as they were pending. Unfortunately, towards the end of the patient's stay they had gotten in patient and decided to leave. Patient and the patient's requested that they would like to be called for the results. After discussing the risks and benefits of doing such a thing which I did not recommend, patient and the decided to leave. Recommended that patient still follow-up with outpatient cardiology. Do not fill patient is at high risk for acute myocardial infarction. Bleed the patient is stable outpatient candidate given her negative workup here in the emergency department. Head discussion with the patient in regards tin the emergency department included diagnosis, home care, follow-up, and return precautions. All questions have been answered. The patient expressed understanding of these instructions and was agreeable to them. The patient's repeat troponin was noted to be less than detectable level. Family updated on the patient's negative troponin. Disposition: Discharged. Condition: good. CLINICAL IMPRESSION Chest pain characterized as "discomfort" .12 lead EKG performed. (acute substernal). 10/08/2016 16:25 BP: 147/100. HR: 95. RR: 14. O2 saturation: 98%. Temp: 97 F. Pain level now: 4/10. Hypertensive. Oxygen saturation normal. Essential hypertension. INSTRUCTIONS Warnings: GENERAL WARNINGS: Return or contact your physician immediately if your condition worsens or changes unexpectedly, if not improving as expected, or if other problems arise. SPECIFICALLY, return if you develop chest, neck, jaw, shoulder, arm, or back pain, difficulty breathing, a fluttering sensation in your chest, lightheadedness, fainting, excessive fatigue, or sudden sweating. numbness, tingling, weakness, or worsening vision. Your Current Medications: CONTINUE TAKING THE FOLLOWING MEDICATIONS: Climara Transdermal. Lisinopril Oral. Tirosint Oral : Capsule 88 mcg, 1 capsule. Vitamin D Oral. OTC Medications: Aspirin 325 mg (available over the counter): take 1 orally every 24 hours. Dispense thirty (30). No refills. Follow-up: Return to the emergency department as needed. Follow up with your doctor in three days. Reason for referral: recheck today's concerns. Summary of care provided to patient via paper. Screening today revealed the patient's blood pressure to be in the normal range. The patient should follow up with a primary care provider for blood pressure management. Understanding of the discharge instructions verbalized by patient. Follow-up with: Kolton Pacheco MD, Cardiology, , [facility] - Cardiology, [address] [facility] [facility], [address] Follow up in three days. Reason for referral: recheck today's concerns. Summary of care provided to patient via paper. (Electronically signed by Emil Hedrick Dr. 10/09/2016 19:27)
--- NOTE | 2016-10-08 20:36 | ED ORDER SUMMARY ---
..... Patient: ARIANA ALDRIDGE OrderSheet [facility] VisitID: [id number] [place] [address] 56y, F Registration Date/Time: 10/08/2016 ORDER SHEET Weight: 68.0 kg (stated) Allergies: Morphine and Related GENERAL ORDERS: EKG - ER Stat (16:39 10/08/2016 LNations ER Tech1 per protocol) (16:40 PWeiler ER Tech1) Chest 1V Urgent (16:51 10/08/2016 Barber Stahl) (Ack 16:54 PWeiler ER Tech1) (17:40 EHassan R.N.) Executive Administrative Asst (Continuous) (CP) (16:52 10/08/2016 Barber Stahl) (16:58 LWhalen R.N.) CT Head wo Cont Urgent (16:52 10/08/2016 Barber Stahl) (Ack 16:55 PWeiler ER Tech1) (17:40 EHassan R.N.) CBC w Diff Urgent (16:53 10/08/2016 Barber Stahl) (Ack 16:54 PWeiler ER Tech1) (17:00 EHassan R.N.) CMP Urgent (16:53 10/08/2016 Barber Stahl) (Ack 16:54 PWeiler ER Tech1) (17:00 EHassan R.N.) UA-Culture if indicated Urgent (16:53 10/08/2016 Barber Stahl) (Ack 16:54 PWeiler ER Tech1) (17:40 EHassan R.N.) PT with INR Urgent (16:53 10/08/2016 Barber Stahl) (Ack 16:54 PWeiler ER Tech1) (17:00 EHassan R.N.) D-Dimer Urgent (16:53 10/08/2016 Barber Stahl) (Ack 16:54 PWeiler ER Tech1) (17:00 EHassan R.N.) Troponin-I Urgent (16:53 10/08/2016 Barber Stahl) (Ack 16:54 PWeiler ER Tech1) (17:00 EHassan R.N.) PTT Urgent (16:53 10/08/2016 Barber Stahl) (Ack 16:54 PWeiler ER Tech1) (17:00 EHassan R.N.) Pulse oximeter (16:53 10/08/2016 Barber Stahl) (16:58 LWhalen R.N.) TSH Urgent (16:53 10/08/2016 Barber Stahl) (Ack 16:55 PWeiler ER Tech1) (17:00 EHayanna R.N.) TSH Urgent (17:55 10/08/2016 Barber Stahl) (Cancelled: Duplicate Order17:58 Barber Stahl) Troponin-I Urgent (18:40 10/08/2016 Barber Stahl) (Ack 18:43 PWeiler ER Tech1) (18:54 EHassaadrian R.N.) MEDICATION ORDERS: IV FLUIDS: IV Saline Lock (16:53 10/08/2016 Barber Stahl) (17:41 EHassaadrian R.N.) ORDER SHEET NOTES: [Electronically signed by Naheed Vega R.N. (20:46 10/08/2016)] [Electronically signed by Emil eHdrick Dr. (19:27 10/09/2016)] [Electronically locked/signed by Naheed Vega R.N. (20:46 10/08/2016)]
--- NOTE | 2016-10-09 19:27 | ED MAR SUMMARY ---
..... Medication Administration Record [facility] [address] [place], [place] [id number] Patient: ARIANA ALDRIDGE Visit ID: [id number] 56y, F Weight: 68.0 kg Height/Length: 62 in BMI: 27.4 ALLERGIES: Morphine and Related
--- NOTE | 2016-10-09 19:27 | ED MED RECONCILIATION SUMMARY ---
Patient: ARIANA ALDRIDGE Medication Reconciliation Report [facility] VisitID: [id number] [address] [place] [address] 56y, F Registration Date/Time: 10/08/2016 Weight: 68.0 kg Height/Length: 62 in. BMI: 27.4 ALLERGIES: Morphine and Related The patient's Home Medications are listed below: CONTINUE TAKING THE FOLLOWING MEDICATIONS: Climara Transdermal Lisinopril Oral Tirosint Oral (88 mcg) 1 capsule Vitamin D Oral The source(s) of the original Home Medication information: patient The following Medications were given to the patient in the Emergency Department: None. The following Medications were prescribed to the patient: Aspirin 325 mg (available over the counter): take 1 orally every 24 hours. Dispense thirty (30). No refills. -- Emil Hedrick Dr.
--- NOTE | 2016-10-09 19:27 | ED DISCHARGE INSTRUCTIONS ---
Patient: ARIANA ALDRIDGE General Instructions [facility] VisitID: [id number] [place] [address] 56y, F Registration Date/Time: 10/08/2016 Chest pain characterized as "discomfort" .12 lead EKG performed. (acute substernal). 10/08/2016 16:25 BP: 147/100. HR: 95. RR: 14. O2 saturation: 98%. Temp: 97 F. Pain level now: 08/12. Hypertensive. Oxygen saturation normal. Essential hypertension. INSTRUCTIONS Warnings: GENERAL WARNINGS: Return or contact your physician immediately if your condition worsens or changes unexpectedly, if not improving as expected, or if other problems arise. SPECIFICALLY, return if you develop chest, neck, jaw, shoulder, arm, or back pain, difficulty breathing, a fluttering sensation in your chest, lightheadedness, fainting, excessive fatigue, or sudden sweating. numbness, tingling, weakness, or worsening vision. Your Current Medications: CONTINUE TAKING THE FOLLOWING MEDICATIONS: Climara Transdermal. Lisinopril Oral. Tirosint Oral : Capsule 88 mcg, 1 capsule. Vitamin D Oral. OTC Medications: Aspirin 325 mg (available over the counter): take 1 orally every 24 hours. Dispense thirty (30). No refills. Follow-up: Return to the emergency department as needed. Follow up with your doctor in three days. Reason for referral: recheck today's concerns. Summary of care provided to patient via paper. Screening today revealed the patient's blood pressure to be in the normal range. The patient should follow up with a primary care provider for blood pressure management. Understanding of the discharge instructions verbalized by patient. Follow-up with: Kolton Pacheco MD, Cardiology, , [facility] - Cardiology, [address] [phone] Follow up in three days. Reason for referral: recheck today's concerns. Summary of care provided to patient via paper. ADDITIONAL INFORMATION Chest Pain, Uncertain Cause Chest pain can happen for a number of reasons. Sometimes the cause can not be determined. If yourcondition does not seem serious, and your pain does not appear to be coming from your heart, your doctor may recommend watching it closely. Sometimes the signs of a serious problem take more time to appear. Therefore, watch for the warning signs listed below. Home care After your visit, follow these recommendations: Rest today and avoid strenuous activity. Take any prescribed medicine as directed. Follow-up care Follow up with your doctor or this facility as instructed or if you do not start to feel better within 24 hours. Call 911 Get immediate medical attention if any of the following occur: A change in the type of pain: if it feels different, becomes more severe, lasts longer, or begins to spread into your shoulder, arm, neck, jaw or back Shortness of breath or increased pain with breathing Weakness, dizziness, or fainting Rapid heart beat Get prompt medical attention Call your doctor right away if any of the following occur: Cough with dark colored sputum (phlegm) or blood Fever of 100.4F(38C) or higher, or as directed by your health care provider Swelling, pain or redness in one leg High Blood Pressure --Established High Blood Pressure (Hypertension) is a chronic disease. The cause is unknown in most cases. It can usually be controlled with lifestyle changes and/or medicines. Symptoms of high blood pressure may include headache, dizziness, visual changes, chest pain and shortness of breath. Sometimes it causes no symptoms at all. However, even if there are no symptoms, untreated high blood pressure increases the risk of heart attack, also known as acute myocardial infarction, or AMI, and stroke. It is a serious health risk and should not be ignored. A normal blood pressure is 120/80 or less. The first (top) number is the "systolic" pressure. The second (bottom) number is the "diastolic" pressure. Hypertension exists when either the top number is 140 or higher, OR the bottom number is 90 or higher on repeated measurements. Home Care: All patients with high blood pressure should do the following to lower their pressure. If you are on medicines, then these methods may reduce or eliminate your need for medicines in the future. Begin a weight loss program if you are overweight. Reduce your salt intake. Avoid high salt foods (olives, pickles, smoked meats, salted potato chips, etc.). Do not add salt to your food at the table. Use only small amounts of salt when cooking. Begin an exercise program. Discuss with your doctor what type of exercise program would be best for you. It doesn't have to be difficult. Even brisk walking for 20 minutes three times a week is a good form of exercise. Avoid medicines which contain heart stimulants. This includes many cold and sinus decongestant pills and sprays as well as diet pills. Check the warnings about hypertension on the label. Stimulants such as amphetamine or cocaine could be lethal for someone with hypertension. Never take these. Limit your caffeine intake or switch to caffeine-free products. Stop smoking. If you are a long-time smoker, this can be hard. Enroll in a stop-smoking program to improve your chance of success. Learning how to handle stress better is an important part of any program to lower blood pressure. Learn about relaxation methods such as meditation, yoga or biofeedback. If medicines were prescribed, take them exactly as directed. Missing doses may cause your blood pressure get out of control. Consider buying an automatic blood pressure machine (available at most pharmacies). Use this to monitor your blood pressure at home and report the results to your doctor. Follow Up: Regular visits to your own physician for blood pressure checks and medicine adjustment is an important part of your care. Make a follow-up appointment as directed by our staff. Get Prompt Medical Attention if any of the following occur: Chest pain or shortness of breath Severe headache Throbbing or rushing sound in the ears Nosebleed Sudden severe abdominal pain Extreme drowsiness, confusion or fainting Dizziness or vertigo (dizziness with spinning sensation) Weakness of an arm or leg or one side of the face Difficulty with speech or vision Aspirin Oral tablet What is this medicine? ASPIRIN ( pir in) is a pain reliever. It is used to treat mild pain and fever. This medicine is also used as directed by a doctor to prevent and to treat heart attacks, to prevent strokes, and to treat arthritis or inflammation. How should I use this medicine? Take this medicine by mouth with a glass of water. Follow the directions on the package or prescription label. You can take this medicine with or without food. If it upsets your stomach, take it with food. Do not take your medicine more often than directed. Talk to your data support specialist regarding the use of this medicine in children. While this drug may be prescribed for children as young as 12 years of age for selected conditions, precautions do apply. Children and teenagers should not use this medicine to treat chicken pox or flu symptoms unless directed by a doctor. Patients over 65 years old may have a stronger reaction and need a smaller dose. What side effects may I notice from receiving this medicine? Side effects that you should report to your doctor or health pharmacist critical care as soon as possible: allergic reactions like skin rash, itching or hives, swelling of the face, lips, or tongue breathing problems changes in hearing, ringing in the ears confusion general ill feeling or flu-like symptoms pain on swallowing redness, blistering, peeling or loosening of the skin, including inside the mouth or nose signs and symptoms of bleeding such as bloody or black, tarry stools; red or dark-brown urine; spitting up blood or brown material that looks like coffee grounds; red spots on the skin; unusual bruising or bleeding from the eye, gums, or nose trouble passing urine or change in the amount of urine unusually weak or tired yellowing of the eyes or skin Side effects that usually do not require medical attention (report to your doctor or health pharmacist critical care if they continue or are bothersome): diarrhea or constipation nausea, vomiting stomach gas, heartburn What may interact with this medicine? Do not take this medicine with any of the following medications: cidofovir ketorolac probenecid This medicine may also interact with the following medications: alcohol alendronate bismuth subsalicylate flavocoxid herbal supplements like feverfew, garlic, elizabeth, ginkgo biloba, horse chestnut medicines for diabetes or glaucoma like acetazolamide, methazolamide medicines for gout medicines that treat or prevent blood clots like enoxaparin, heparin, ticlopidine, warfarin other aspirin and aspirin-like medicines NSAIDs, medicines for pain and inflammation, like ibuprofen or naproxen pemetrexed sulfinpyrazone varicella live vaccine What if I miss a dose? If you are taking this medicine on a regular schedule and miss a dose, take it as soon as you can. If it is almost time for your next dose, take only that dose. Do not take double or extra doses. Where should I keep my medicine? Keep out of the reach of children. Store at room temperature between 15 and 30 degrees C (59 and 86 degrees F). Protect from heat and moisture. Do not use this medicine if it has a strong vinegar smell. Throw away any unused medicine after the expiration date. What should I tell my health care provider before I take this medicine? They need to know if you have any of these conditions: anemia asthma bleeding problems child with chickenpox, the flu, or other viral infection diabetes gout if you frequently drink alcohol containing drinks kidney disease liver disease low level of vitamin K lupus smoke tobacco stomach ulcers or other problems an unusual or allergic reaction to aspirin, tartrazine dye, other medicines, dyes, or preservatives or trying to get breast-feeding What should I watch for while using this medicine? If you are treating yourself for pain, tell your doctor or health pharmacist critical care if the pain lasts more than 10 days, if it gets worse, or if there is a new or different kind of pain. Tell your doctor if you see redness or swelling. Also, check with your doctor if you have a fever that lasts for more than 3 days. Only take this medicine to prevent heart attacks or blood clotting if prescribed by your doctor or health pharmacist critical care. Do not take aspirin or aspirin-like medicines with this medicine. Too much aspirin can be dangerous. Always read the labels carefully. This medicine can irritate your stomach or cause bleeding problems. Do not smoke cigarettes or drink alcohol while taking this medicine. Do not lie down for 30 minutes after taking this medicine to prevent irritation to your throat. If you are scheduled for any medical or dental procedure, tell your healthcare provider that you are taking this medicine. You may need to stop taking this medicine before the procedure. You have been given the following additional information: Chest Pain, Uncertain Cause Hypertension, Established Aspirin Oral tablet (Electronically signed by Emil Hedrick Dr. 10/09/2016 19:27)
--- NOTE | 2016-10-09 19:27 | ED MED RECONCILIATION SUMMARY ---
Patient: ARIANA ALDRIDGE Medication Reconciliation Report [facility] VisitID: [id number] [address] [place] [address] 56y, F Registration Date/Time: 10/08/2016 Weight: 68.0 kg Height/Length: 62 in. BMI: 27.4 ALLERGIES: Morphine and Related The patient's Home Medications are listed below: CONTINUE TAKING THE FOLLOWING MEDICATIONS: Climara Transdermal Lisinopril Oral Tirosint Oral (88 mcg) 1 capsule Vitamin D Oral The source(s) of the original Home Medication information: patient The following Medications were given to the patient in the Emergency Department: None. The following Medications were prescribed to the patient: Aspirin 325 mg (available over the counter): take 1 orally every 24 hours. Dispense thirty (30). No refills. -- Emil Hedrick Dr.
--- NOTE | 2016-10-09 19:27 | ED MAR SUMMARY ---
..... Medication Administration Record [facility] [address] [place], [place] [id number] Patient: ARIANA ALDRIDGE Visit ID: [id number] 56y, F Weight: 68.0 kg Height/Length: 62 in BMI: 27.4 ALLERGIES: Morphine and Related
== END 2016-10-08 20:46 | disposition home or self-care (01) ==
LOC: ED SRH 16:27
DX: R07.89 Other chest pain (principal); H53.8 Other visual disturbances; I69.898 Other sequelae of other cerebrovascular disease; I10 Essential (primary) hypertension; Z87.891 Personal history of nicotine dependence; Z79.899 Other long term (current) drug therapy; Z88.5 Allergy status to narcotic agent
CPT/HCPCS: 90004; 90100; 90616; 91556; 93140; 94001; 94060; 95059

== ENCOUNTER 2016-10-18 09:01 | Outpatient (CLI) | payer OTHER ==
--- NOTE | 2016-10-18 12:09 | DIAGNOSTIC IMAGING REPORT ---
PROCEDURE: MR BRAIN W/WO CONTRAST INDICATION: HEMIANOPSIA,POSS CVA TECHNIQUE: Multiplanar multisequence MRI imaging of the brain without contrast. Post administration of 15 ml ProHance gadolinium based IV contrast, three plane T1 fat sat sequences were obtained. COMPARISON: MRI of the brain dated 09/25/2016 FINDINGS: The midline structures are normally formed. The ventricular system is normal in size. Basal cisterns are patent. Flow voids in the major intracranial vessels are normal. No vascular malformations seen post contrast. A few scattered areas of increased signal are seen in the periventricular white matter consistent with small-vessel ischemic disease No restricted diffusion to suggest acute ischemia. No evidence of acute or chronic intraparenchymal or extra-axial hemorrhage. No mass, mass effect, or midline shift. No suspicious enhancement. Normal signal in the visible bones. The sinuses are normally aerated. Visible extracranial soft tissues including the orbits are normal. IMPRESSION: 1. Mild periventricular small-vessel ischemic disease 2. No abnormal enhancement.
--- NOTE | 2016-10-18 12:21 | DIAGNOSTIC IMAGING REPORT ---
PROCEDURE: MRA HEAD WITHOUT CONTRAST INDICATION: HEMIANOPSIA,POSS CVA TECHNIQUE: Multiplanar multisequence MRI imaging of the brain without contrast. Post administration of 15 ml ProHance gadolinium based IV contrast, three plane T1 fat sat sequences were obtained. COMPARISON: None. FINDINGS: Head: Anterior circulation: The carotid, anterior, and middle arteries are normal. There is no evidence of atherosclerotic disease. No evidence of vasculitis or vasospasm. No evidence of aneurysm or vascular malformation. Posterior circulation: There is occlusion of the calcarine branch of the right posterior cerebral artery. This occlusion is at the origin of the calcarine branch just at the right angle takeoff of a parietal occipital branch. IMPRESSION: 1. 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
== END 2016-10-18 23:00 | disposition home or self-care (01) ==
LOC: MRI SRH 09:01 → LABDARR S 09:01 → MRI SRH 10:00
DX: I67.82 Cerebral ischemia (principal); I66.21 Occlusion and stenosis of right posterior cerebral artery

== ENCOUNTER 2016-10-31 10:19 | Outpatient (CLI) | payer OTHER ==
--- NOTE | 2016-10-31 10:50 | DIAGNOSTIC IMAGING REPORT ---
PROCEDURE: MG BILATERAL SCREENING W/CAD INDICATION: Screening. Family history breast carcinoma (great grandmother). TECHNIQUE: Bilateral CC and MLO digital views. COMPARISON: Compared to 12/12/2011, 08/21/2003. FINDINGS: Computer-aided detection applied. Moderately dense. There is a 6 mm asymmetry in the posterior medial right breast with indistinct margins (seen only on the CC view). IMPRESSION: 1. Findings suggest a 6 mm asymmetry in the posterior medial right breast (seen only on the CC view). While this may represent normal tissue, underlying mass or architectural distortion should be considered. Further mammographic views (true lateral view, CC and MLO spot compression views, rolled medial and lateral CC views) are recommended. In addition, right breast ultrasound is recommended. RESULT CODE: 0- Incomplete; needs additional evaluation. A. A negative report should not delay biopsy if a dominant or clinically suspicious mass is present. 10-15% of cancers are not identified by x-ray. B. A negative report may reinforce clinical impression. C. Adenosis and dense breasts may obscure an underlying neoplasm. D. False positive reports average 6-10%. E.. A yearly screening mammogram is recommended. A reminder letter will be scheduled.
== END 2016-10-31 23:00 | disposition home or self-care (01) ==
LOC: MAM SRH 10:19
DX: Z12.31 Encounter for screening mammogram for malignant neoplasm of breast (principal)

== ENCOUNTER 2016-11-13 13:17 | Outpatient (CLI) | payer OTHER ==
--- NOTE | 2016-11-13 14:58 | DIAGNOSTIC IMAGING REPORT ---
PROCEDURE: MG UNILATERAL DIAG-RT W/CAD INDICATION: EVALUATE ASYMMETRY SEEN ON SCREENING TECHNIQUE: Spot compression mammographic views of the right breast in the CC and MLO projection. A direct lateral right breast mammogram using CAD. Rolled views of the right breast in the CC projection. The patient then went to ultrasound where palacios-scale and color Doppler sonographic imaging of the right breast was performed. COMPARISON: 10/31/2016, 12/12/2011, 08/21/2003 FINDINGS: Mammograms: With focal spot compression, there is no definite persistent spiculated density. Rolled views demonstrate a vaguely curvilinear mobile structure without visible spiculations. No adjacent calcifications. No persistent area of architectural distortion. Ultrasound: Sonographically normal breast tissue. No cyst, solid mass, or suspicious shadowing. IMPRESSION: 1. With special mammographic views and ultrasound, no definite abnormality identified. This likely represented an unusual area of overlapping glandularity on screening mammogram. 6-month follow-up right breast mammogram is recommended for confirmation of benignity. 2. Findings and recommendations were discussed with the patient. RESULT CODE: 3- Probably benign. A. A negative report should not delay biopsy if a dominant or clinically suspicious mass is present. 10-15% of cancers are not identified by x-ray. B. A negative report may reinforce clinical impression. C. Adenosis and dense breasts may obscure an underlying neoplasm. D. False positive reports average 6-10%. E.. A yearly screening mammogram is recommended. A reminder letter will be scheduled.
== END 2016-11-13 23:00 ==
LOC: MAM SRH 13:17
DX: N64.89 Other specified disorders of breast (principal)